=== PATIENT | male | born 1970 | race Caucasian/White ===

== ENCOUNTER 2022-05-19 14:04 | Day surgery (SDC) | payer OTHER, SELFPAY ==
[2022-05-19] VITALS (17 sets, daily range): BP systolic 122–162; BP diastolic 71–104; PULSE 80–112; RESP 12–33; TEMP 36.2–37.2; O2SAT 90–98; BMI 26.4
--- NOTE | 2022-05-19 14:08 | CRLHL7_ITS ---
For Patients: As a result of the Century Cures Act, medical imaging exams and procedure reports are released immediately into your electronic medical record. You may view this report before your referring provider. If you have questions, please contact your health care provider. Indication: Peritonsillar abscess Technique: Volumetric multidetector CT images of the cervical soft tissues were obtained after the administration of low osmolar intravenous contrast. 90 cc Isovue 370 low osmolar intravenous contrast Comparison: None available. Findings: The partially visualized brain parenchyma is normal in attenuation without evidence of abnormal enhancement. The orbits and their contents are within normal limits. There is minimal mucosal thickening within the paranasal sinuses with minimal bubbly secretions. The mastoid air cells are clear. There is mild edema within the uvula and soft palate. Otherwise, the nasopharynx is grossly clear. There is enlargement of the right greater than left palatine tonsil with demonstration of a 2.0 x 1.7 centimeter peritonsillar abscess. There is moderate edema of the right pharyngeal wall and right base of tongue with the effacement of the right piriform sinus. No definite evidence of extension of inflammatory changes into the retropharyngeal space or submandibular spaces. The vocal folds are nonthickened with symmetrical appearance. The thyroid gland is normal in attenuation. There are enlarged, reactive cervical lymph nodes within the right greater than left carotid chains. The jugular veins are patent. The carotid arteries demonstrate no significant atherosclerotic narrowing. The lung apices are clear. The cervical vertebral body heights are grossly maintained with mild straightening of the normal cervical lordosis. There is no significant spondylolisthesis or displaced fracture. Impression: 2.0 x 1.7 centimeter peritonsillar abscess within the right palatine tonsil with moderate right pharyngeal wall edema and effacement of the hypopharynx and right piriform sinus. Minimal pen pharyngeal mucosal hyperemia consistent with pharyngitis changes. Reactive cervical lymph nodes are appreciated. Please note that all CT scans at this facility use dose modulation, iterative reconstruction, and/or weight-based dosing when appropriate to reduce radiation dose to as low as reasonably achievable. Dictated by Andre Louie MD @ 05/19/2022 4:13:24 PM (Electronically Signed)
[2022-05-19 14:39] LABS: Lactate* 1.4 mmol/L (0.5-1.9)
[2022-05-19] MEDS: KETOROLAC 30 MG/ML inj IVP (14:41)
--- NOTE | 2022-05-19 14:41 | ED_ITS ---
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 Sawyer Goode in our ENT. History is that he has now had a sore throat for approximately 5-6 days, he was seen 4 days ago, diagnosed with tonsillitis since given dexamethasone, he improved slightly but in the last couple days is gotten worsening right-sided is throat discomfort, slight fevers, been taking Tylenol and also ibuprofen. History of sore throat in the past, strep negative so far. Otherwise healthy, trouble swallowing at this point with right-sided pain, but no drooling. Presents here with his , Onset (ago): day(s) Location: neck Associated symptoms: denies other symptoms Treatments prior to arrival: NSAID and other Related Data Home Medications Medication Instructions Recorded Confirmed No Known Home Medications 05/16/22 05/19/22 Allergies Allergy/AdvReac Type Severity Reaction Status Date / Time No Known Drug Allergies Allergy Verified 05/19/22 14:16 Review of Systems Status of ROS: Reports: 10 or more systems reviewed and unremarkable except as noted in History and below [facility] Social History Smoking Status: Never smoker Exam Narrative: Exam Narrative: On examination room 2 he is in no apparent distress he does have a little bit of what I would describe as hot potato voice. Speaking to me otherwise normally, pupils equal round reactive to light, no scleral icterus redness TMs are normal, small dried lesion on that right upper lip, consistent with resolving herpes labialis, mouth opening is 3 fingers, he has right-sided peritonsillar swelling with redness consistent with the I suspect tonsillar abscess. This encroaches on his uvula, the left side appears otherwise fairly normal. Lymphadenopathy is increased on the right side versus left, tender to palpation, no meningismus he is able to move his neck normally, chest is clear bilaterally with no wheezing crackles noted heart sounds are normal, no clicks murmurs or gallops, abdomen is otherwise soft skin is shows no rashes, good cap refill moves all extremities independently well, with normal neurologic power in upper lower extremities. Const: Vital Signs, click to edit/add: Vital Signs - 24 hr 05/19/22 14:13 Temperature 97.4 F L Pulse Rate [Pulse Oximeter] 88 Respiratory Rate 18 Blood Pressure [Ri ght Upper Arm] 154/104 H Pulse Oximetry 98 Oxygen Delivery Me thod Room Air Documenting provider has reviewed patient's vital signs: yes Course Course Hospital Course: Discussed the case with our ENT surgeon, he will take him to the operating room to drain the right-sided peritonsillar abscess which measures by my reading 2 cm. Radiological read pending, discussed with patient Reevaluation(s) Reevaluation #1: Patient's laboratory and CT reviewed, reviewed with ENT, he will be going to the operating room, patient fit for surgery ASA 1. Vital Signs Vital signs: Initial Vital Signs Temperature 97.4 F L 05/19/22 14:13 Temperature Source Temporal Artery Scan 05/19/22 14:13 Pulse Rate 88 05/19/22 14:13 Respiratory Rate 18 05/19/22 14:13 Blood Pressure 154/104 H 05/19/22 14:13 Blood Pressure Mean 120 05/19/22 14:13 Blood Pressure Position Sitting 05/19/22 14:13 Pulse Oximetry 98 05/19/22 14:13 Oxygen Delivery Method Room Air 05/19/22 14:13 Vital Signs Temperature 97.4 F L 05/19/22 14:13 Pulse Rate 88 05/19/22 14:13 Respiratory Rate 18 05/19/22 14:13 Blood Pressure 154/104 H 05/19/22 14:13 Pulse Oximetry 98 05/19/22 14:13 Oxygen Delivery Method Room Air 05/19/22 14:13 Temperature 97.4 F L 05/19/22 14:13 Pulse Rate 88 05/19/22 14:13 Respiratory Rate 18 05/19/22 14:13 Blood Pressure 154/104 H 05/19/22 14:13 Pulse Oximetry 98 05/19/22 14:13 Oxygen Delivery Method Room Air 05/19/22 14:13 Medical Decision Making MDM Narrative Medical decision making narrative: During this assessment I considered multiple diagnosis including tonsillitis, strep throat, peritonsillar abscess, retropharyngeal abscess, neck abscess, thyroid issues, meningismus, among other issues. We will go ahead and get a neck CT was soft tissue contrast along with IV labs, IV pain medication will be given, he requested that we not use narcotics and I think this is reasonable. We will try some Toradol. I will contact the on-call ENT physician once this is all done. Medical Records Medical records reviewed: Yes I reviewed the patient's medical records Lab Data Lab results reviewed: Yes I reviewed the patient's lab results Labs: Lab Results 05/19/22 Range/Units 14:30 WBC 13.22 H (4.50-11.00) K/uL RBC 4.97 (4.30-5.90) m/uL Hgb 15.4 (13.5-17.5) gm/dL Hct 45.4 (37.0-53.0) % MCV 91 (80-100) fL MCH 31 (26-34) pg MCHC 34 (32-36) gm/dL RDW Coeff of Romulo 11.8 (11.5-15.5) % Plt Count 249 (140-440) K/uL Neut % (Auto) 78.5 H (42.0-72.0) % Lymph % (Auto) 12.0 L (20-44) % Swift % (Auto) 8.9 (0.0-11.0) % Eos % (Auto) 0.3 (0.0-7.0) % Baso % (Auto) 0.2 (0.0-3.0) % Neut # (Auto) 10.40 H (1.7-7.0) K/uL Lymph # (Auto) 1.60 (0.90-2.90) K/uL Swift # (Auto) 1.20 H (0.00-0.90) K/UL Eos # (Auto) 0.00 (0.00-0.50) K/uL Baso # (Auto) 0.00 (0.00-0.30) K/uL Sodium 137 (135-149) mmol/L Potassium 4.2 (3.6-5.1) mmol/L Chloride 101 (96-114) mmol/L Carbon Dioxide 29 (20-32) mmol/L BUN 16 (7-30) mg/dL Creatinine 0.9 (0.5-1.5) mg/dL Estimated Creat Clear 96.88 Estimated GFR 101 ml/min Glucose 76 (60-115) mg/dL Lactate 1.4 (0.5-1.9) mmol/L Calcium 9.3 (8.4-10.6) mg/dL C-Reactive Protein 7.3 H (0.5-1.0) mg/dL SARS-CoV-2 (PCR) Negative SARS-CoV-2 (Negative) Influenza Type A (PCR) Negative PCR FLU A (Negative) Influenza Type B (PCR) Negative PCR FLU B (Negative) RSV (PCR) Negative PCR RSV (Negative) Imaging Data Soft tissue CT neck: Attestation: I have reviewed the pertinent imaging results. My impression: 2 cm abscess noted, Discharge Plan Discharge Clinical Impression: Abscess, peritonsillar Condition: Stable
[2022-05-19 14:42] LABS: Basophils Percent Auto 0.2 % (0.0-3.0); Eosinophils Percent Auto 0.3 % (0.0-7.0); Hematocrit 45.4 % (37.0-53.0); Hemoglobin* 15.4 gm/dL (13.5-17.5); Immature Granulocytes Pct Auto 0.1 %; Mean Corpuscular HGB Conc 34 gm/dL (32-36); Mean Corpuscular Hemoglobin 31 pg (26-34); Mean Corpuscular Volume 91 fL (80-100); Monocytes Percent Auto 8.9 % (0.0-11.0); Neutrophils Percent Auto 78.5 % (42.0-72.0); Platelet Count* 249 K/uL (140-440); RDW Coefficient of Variation % 11.8 % (11.5-15.5); Red Blood Count 4.97 m/uL (4.30-5.90); White Blood Count* 13.22 K/uL (4.50-11.00)
[2022-05-19] MEDS: 0.9 % SODIUM CHLORIDE 1000 ml 1,000 ML IV (14:42)
[2022-05-19 15:06] LABS: Chloride* 101 mmol/L (96-114); Potassium* 4.2 mmol/L (3.6-5.1); Sodium* 137 mmol/L (135-149)
[2022-05-19 15:08] LABS: Creatinine* 0.9 mg/dL (0.5-1.5); Est. Creatinine Clearance* 96.88; Estimated Glomerular Filt Rate 101 ml/min
[2022-05-19 15:09] LABS: Blood Urea Nitrogen* 16 mg/dL (7-30); Carbon Dioxide* 29 mmol/L (20-32); Glucose* 76 mg/dL (60-115)
[2022-05-19 15:10] LABS: Calcium* 9.3 mg/dL (8.4-10.6)
[2022-05-19 15:12] LABS: C Reactive Protein* 7.3 mg/dL (0.5-1.0)
[2022-05-19 15:20] LABS: PCR FLU A Negative PCR FLU A (Negative); PCR FLU B Negative PCR FLU B (Negative); PCR RSV Negative PCR RSV (Negative)
[2022-05-19 15:35] LABS: Slide Review Reflex No
[2022-05-19 15:44] LABS: SARS PCR* Negative SARS-CoV-2 (Negative)
[2022-05-19 16:02] LABS: Mono Screen* Negative (Negative)
[2022-05-19] MEDS: AMPICILLIN/SULBACTAM 3 GM in 0.9 % SODIUM CHLORIDE Mini-bag 100 ML IVPB ×2 (16:30→22:31)
--- NOTE | 2022-05-19 16:41 | W.PM.ENTPROC ---
Procedure Note Date of procedure: 05/19/22 Procedure: Preoperative diagnosis right Geoff Tonsillar, uvular and hypopharyngeal abscess Postoperative diagnosis same Procedure drainage soft palate/uvula abscess, incision drainage right peritonsillar abscess, incision drainage right hypopharyngeal abscess Procedure reads the patient was brought to the operating room prepped and draped in usual fashion. Anesthesia was induced without difficulty in the patient was intubated. McIvor mouth gag was inserted the tongue retracted forward. The uvula was clearly cellulitic and approximately 8 times normal size. The lower half was amputated with needlepoint cautery allowing it decompress. An incision was made with a needlepoint cautery above the right superior tonsil. Sharp and blunt dissection was used to enter the peritonsillar space where a large abscess was encountered. This was opened widely at the top and then and they blunt instrument was used to establish inferior drainage. The cavity was irrigated bleeding was controlled with the Coblation Wand. Culture of the purulent drainage was performed at the initial drainage. No further bleeding was noted. I noted edema along the just medial to the posterior pillar inferiorly in the hypopharynx. Mucosa this swollen mucosa was incised with needlepoint cautery and blunt dissection was used to open widely I 1 cm area. There is no purulent fluid however so I just left this open to drain. The patient was active in the operating room taken recovery in satisfactory condition. Blood loss during procedure was less than 25 mL. Cultures were sent. There were no complications. Surgeon: Antonio Campbell MD
--- NOTE | 2022-05-19 16:44 | P.ENTCN_ITS ---
HPI- ENT Consult Date of Consult Date Seen: 05/19/22 Consult date: 05/19/22 Primary Care Provider: Erwin Ledezma MD Consult Narrative Narrative: Carlo Oneill is a 52 year old male [facility] Social History Smoking Status: Never smoker Meds Home Medications and Allergies Home Medications Medication Instructions Recorded Confirmed Type No Known Home Medications 05/16/22 05/19/22 History Allergies Allergy/AdvReac Type Severity Reaction Status Date / Time No Known Drug Allergies Allergy Verified 05/19/22 14:16 Exam Const: Vital Signs, click to edit/add: Vital Signs - 24 hr 05/19/22 14:13 Temperature 97.4 F L Pulse Rate [Pulse Oximeter] 88 Respiratory Rate 18 Blood Pressure [Ri ght Upper Arm] 154/104 H Pulse Oximetry 98 Oxygen Delivery Me thod Room Air ENT-CN: Result Labs Labs: Short CBC 05/19/22 Range/Units 14:30 WBC 13.22 H (4.50-11.00) K/uL Hgb 15.4 (13.5-17.5) gm/dL Hct 45.4 (37.0-53.0) % Plt Count 249 (140-440) K/uL BMP 05/19/22 14:30 Sodium 137 Potassium 4.2 Chloride 101 Carbon Dioxide 29 BUN 16 Creatinine 0.9 Glucose 76 Calcium 9.3 Assessment and Plan Assessment and plan (1) Abscess, peritonsillar: Status: Acute Assessment and Plan: See clinic notes for further history. CT reviewed shows large abscess. There is edema extending down to near but not occluding anywhere near the glottis. After options and risks reviewed with him he was the plan was to go to the operating room. Risks of recurrence difficult intubation possibility of leaving intubated recurrence of abscess bleeding etc. as well as general anesthesia were all reviewed. He understands and wishes to proceed we will go ahead as soon as possible. I did discuss with him I would likely amputated at least half of his uvula as it was markedly edematous and occluding his oropharyngeal airway. He is comfortable with that.
--- NOTE | 2022-05-19 18:29 | P.ANES_ITS ---
Anesthesia Charges Start Date/Time Anesthesia Start Date: 05/19/22 Anesthesia Start Time: 16:22 Stop Date/Time Anesthesia Stop Date: 05/19/22 Anesthesia Stop Time: 16:55 Summary Emergency: [employer]
--- NOTE | 2022-05-19 18:34 | P.IMHP_ITS ---
Hospitalist- H&P: HPI History of Present Illness Date Seen: 05/19/22 Chief complaint: Needs CT for abscess Narrative: Carlo Oneill is a 52 year old healthy male with several days of progressive sore throat admitted through the emergency department with a right peritonsillar abscess. Taken to the operating room by Dr. Campbell for I and D of this abscess. Patient reports feeling generally better postoperatively. He did note he was having trouble swallowing over the weekend. He was seen in urgent care where he was found to have a negative strep test and given dexamethasone which helped temporarily. Because he was getting worse he was seen in clinic today referred Dr. Campbell and to the emergency department. CT scan showed peritonsillar abscess. No previous problems with tonsillitis or airway problems. He does report that he had some rhinorrhea and other cold symptoms last week. He has not had a fever. No breathing troubles. No other recent illness. He is had previous eye surgery. No other surgeries. No hospitalizations. No chronic medical problems. No medications. No drug allergies. His notes that he does snore. Review of Systems Narrative: No recent illness or injury except as noted above PFSH PFS Surgical History (Updated 05/19/22 @ 19:03 by Ishaan Mendosa MD) Hx of LASIK ?Z98.890 - Other specified postprocedural states (ICD-10) Family History (Updated 05/19/22 @ 19:03 by Ishaan Mendosa MD) Other High cholesterol Social History (Updated 05/19/22 @ 19:04 by Ishaan Mendosa MD) Narrative: He is and lives with his and 2 sons in [facility]. He works as a CPA. He does not smoke. He drinks 1 alcoholic beverage per day. Smoking Status: Never smoker Do you use any of these nicotine containing products: None Second hand tobacco smoke exposure: No How often do you have a drink containing alcohol: never AUDIT-C Alcohol total score: 0 Meds Home Medications and Allergies Home Medications Medication Instructions Recorded Confirmed Type No Known Home Medications 05/16/22 05/19/22 History Home Medication Comments: None Allergies Allergy/AdvReac Type Severity Reaction Status Date / Time No Known Drug Allergies Allergy Verified 05/19/22 14:16 Exam Narrative: Exam Narrative: He is alert and appears in no distress. Oropharynx with small airway. Prominent tongue. Erythema and exudate of the right tonsil. No stridor. Neck is supple without tenderness. No significant adenopathy. Respirations are clear to auscultation. Breathing is unlabored. Cardiovascular: S1, S2, regular rate and rhythm. No murmur gallop or rub. Abdomen: Bowel sounds active. Abdomen is soft without tenderness or mass. Extremities with intact pulses and sensation. Good peripheral perfusion. No edema. Const: Vital Signs, click to edit/add: Vital Signs - 24 hr 05/19/22 14:13 05/19/22 16:50 05/19/22 16:55 Temperature 97.4 F L 98.7 F Pulse Rate 93 112 H Pulse Rate [Pulse Oximeter] 88 Respiratory Rate 18 23 29 H Blood Pressure 148/98 H 162/92 H Blood Pressure [Ri ght Upper Arm] 154/104 H Pulse Oximetry 98 98 98 Oxygen Delivery Me thod Room Air Non Rebreather Mas k Non Rebreather Mas k Oxygen Flow Rate 7 7 Fraction of Inspir ed Oxygen 40 40 05/19/22 17:00 05/19/22 17:05 05/19/22 17:10 Temperature Pulse Rate 89 93 86 Pulse Rate [Pulse Oximeter] Respiratory Rate 20 18 33 H Blood Pressure 137/92 H 145/84 H 138/89 Blood Pressure [Ri ght Upper Arm] Pulse Oximetry 98 97 96 Oxygen Delivery Me thod Non Rebreather Mas k Room Air Room Air Oxygen Flow Rate 7 0 0 Fraction of Inspir ed Oxygen 40 0 0 05/19/22 17:15 05/19/22 17:20 05/19/22 15:30 Temperature 99 F Pulse Rate 86 83 Pulse Rate [Pulse Oximeter] 91 Respiratory Rate 19 19 16 Blood Pressure 142/91 H 138/91 H Blood Pressure [Ri ght Upper Arm] 139/85 Pulse Oximetry 98 96 96 Oxygen Delivery Me thod Room Air Room Air Room Air Oxygen Flow Rate 0 0 Fraction of Inspir ed Oxygen 0 0 Documenting provider has reviewed patient's vital signs: yes Hospitalist - H&P: Result Labs Labs: Short CBC 05/19/22 Range/Units 14:30 WBC 13.22 H (4.50-11.00) K/uL Hgb 15.4 (13.5-17.5) gm/dL Hct 45.4 (37.0-53.0) % Plt Count 249 (140-440) K/uL [facility] 05/19/22 14:30 Sodium 137 Potassium 4.2 Chloride 101 Carbon Dioxide 29 BUN 16 Creatinine 0.9 Glucose [address]- Other: Radiologist's impression: Indication: Peritonsillar abscess Technique: Volumetric multidetector CT images of the cervical soft tissues were obtained after the administration of low osmolar intravenous contrast. 90 cc Isovue 370 low osmolar intravenous contrast Comparison: None available. Findings: The partially visualized brain parenchyma is normal in attenuation without evidence of abnormal enhancement. The orbits and their contents are within normal limits. There is minimal mucosal thickening within the paranasal sinuses with minimal bubbly secretions. The mastoid air cells are clear. There is mild edema within the uvula and soft palate. Otherwise, the nasopharynx is grossly clear. There is enlargement of the right greater than left palatine tonsil with demonstration of a 2.0 x 1.7 centimeter peritonsillar abscess. There is moderate edema of the right pharyngeal wall and right base of tongue with the effacement of the right piriform sinus. No definite evidence of extension of inflammatory changes into the retropharyngeal space or submandibular spaces. The vocal folds are nonthickened with symmetrical appearance. The thyroid gland is normal in attenuation. There are enlarged, reactive cervical lymph nodes within the right greater than left carotid chains. The jugular veins are patent. The carotid arteries demonstrate no significant atherosclerotic narrowing. The lung apices are clear. The cervical vertebral body heights are grossly maintained with mild straightening of the normal cervical lordosis. There is no significant spondylolisthesis or displaced fracture. Impression: 2.0 x 1.7 centimeter peritonsillar abscess within the right palatine tonsil with moderate right pharyngeal wall edema and effacement of the hypopharynx and right piriform sinus. Minimal pen pharyngeal mucosal hyperemia consistent with pharyngitis changes. Reactive cervical lymph nodes are appreciated. Please note that all CT scans at this facility use dose modulation, iterative reconstruction, and/or weight-based dosing when appropriate to reduce radiation dose to as low as reasonably achievable. Assessment and Plan Assessment and plan (1) Abscess, peritonsillar: Problem comment: Right peritonsillar abscess status post I&D. Status: Acute Plan He is admitted to the hospital for ongoing IV antibiotics and monitoring of airway as the abscess was tracking into his airway. Probable discharge to home tomorrow if making progress with symptoms. Total time spent today is 40 minutes, 25 minutes in coordination of care discussing with patient and other providers ongoing evaluation management of peritonsillar abscess.
--- NOTE | 2022-05-19 19:00 | PC.NURSE ---
Pt arrived to floor at 1730. Pt alert and oriented. Pt had no complaints of pain. Pt's voice was hoarse. Pt up to bathroom with SBA tolerated activity well. Pt voided and has had good fluid intake. Pt saline locked at end of shift. Pt's at bedside.
[2022-05-19] MEDS: SODIUM CHLORIDE 0.9 % (FLUSH) 10 ML SYRINGE 5 ML IVF (21:17)
[2022-05-19] MEDS: LACTATED RINGERS 1000 ML 1,000 ML 35 ML IV (21:18)
[2022-05-20 03:40] VITALS: BP 118/78; PULSE 89; RESP 12; TEMP 36.8; O2SAT 90
[2022-05-20] MEDS: AMPICILLIN/SULBACTAM 3 GM in 0.9 % SODIUM CHLORIDE Mini-bag 100 ML IVPB ×2 (05:45→10:31)
[2022-05-20 05:55] VITALS: PULSE 80; RESP 12
--- NOTE | 2022-05-20 06:34 | PC.NURSE ---
Addendum entered by Amy Mathews RN 05/20/22 06:40: Full liquid diet not reg diet that patient is tolerating well. Original Note: Patient is alert and oriented x 3, vss, on RA, regular diet (tolerating well), up-ad dante. Patient is saline locked he is drinking adequate fluids and voiding appropriately. Patient denies pain.
[2022-05-20 07:40] VITALS: BP 129/94; PULSE 74; RESP 16; TEMP 36.1; O2SAT 92
--- NOTE | 2022-05-20 09:03 | P.DS_ITS ---
DS: Providers Provider Date Seen: 05/20/22 Primary care physician: Erwin Ledezma MD Attending Physician on discharge: Antonio Campbell MD Date of Discharge: 05/20/22 DS: Diagnosis Discharge Diagnosis (1) Abscess, peritonsillar: Status: Acute Problem details: Right peritonsillar abscess status post I&D. (2) Obstructive sleep apnea: Status: Suspected Problem details: Clinically suspicious for obstructive sleep apnea. Recommend outpatient sleep study. DS: Summary Hospital Course Hospital Course: 52-year-old male with several days of progressive sore throat admitted to the hospital with a right peritonsillar abscess. Was taken to the OR by Dr. Campbell for I and D of this abscess. Subsequently stayed overnight for observation of his airway and antibiotics due to concerns about the extent of his infection. He did well overnight. Still having some pain with swallowing. Status at Discharge Functional status at discharge: independent ambulation Overall status at discharge: patient is progressing back to baseline Time Spent with Patient Time attestation: Total time spent providing and/or coordinating discharge services: Time spent: Less than 30 minutes Exam Narrative: Exam Narrative: He is alert in no distress. Voice is normal. Oropharynx with still erythema and exudate around the right tonsil. Neck is supple without significant tenderness and no stridor Const: Vital Signs, click to edit/add: Vital Signs - 24 hr 05/19/22 14:13 05/19/22 16:50 05/19/22 16:55 Temperature 97.4 F L 98.7 F Pulse Rate 93 112 H Pulse Rate [Pulse Oximeter] 88 Respiratory Rate 18 23 29 H Blood Pressure 148/98 H 162/92 H Blood Pressure [Ri ght Arm] Blood Pressure [Ri ght Upper Arm] 154/104 H Pulse Oximetry 98 98 98 Oxygen Delivery Me thod Room Air Non Rebreather Mas k Non Rebreather Mas k Oxygen Flow Rate 7 7 Fraction of Inspir ed Oxygen 40 40 05/19/22 17:00 05/19/22 17:05 05/19/22 17:10 Temperature Pulse Rate 89 93 86 Pulse Rate [Pulse Oximeter] Respiratory Rate 20 18 33 H Blood Pressure 137/92 H 145/84 H 138/89 Blood Pressure [Ri ght Arm] Blood Pressure [Ri ght Upper Arm] Pulse Oximetry 98 97 96 Oxygen Delivery Me thod Non Rebreather Mas k Room Air Room Air Oxygen Flow Rate 7 0 0 Fraction of Inspir ed Oxygen 40 0 0 05/19/22 17:15 05/19/22 17:20 05/19/22 15:30 Temperature 99 F Pulse Rate 86 83 Pulse Rate [Pulse Oximeter] 91 Respiratory Rate 19 19 16 Blood Pressure 142/91 H 138/91 H Blood Pressure [Ri ght Arm] Blood Pressure [Ri ght Upper Arm] 139/85 Pulse Oximetry 98 96 96 Oxygen Delivery Me thod Room Air Room Air Room Air Oxygen Flow Rate 0 0 Fraction of Inspir ed Oxygen 0 0 05/19/22 17:30 05/19/22 17:30 05/19/22 17:45 Temperature 97.1 F L 97.1 F L 97.6 F Pulse Rate 80 Pulse Rate [Pulse Oximeter] 85 Respiratory Rate 16 16 16 Blood Pressure Blood Pressure [Ri ght Arm] 129/71 129/71 131/82 Blood Pressure [Ri ght Upper Arm] Pulse Oximetry 96 93 Oxygen Delivery Me thod Room Air Room Air Room Air Oxygen Flow Rate 0 0 Fraction of Inspir ed Oxygen 05/19/22 18:00 05/19/22 18:15 05/19/22 18:45 Temperature 97.6 F 97.1 F L 97.3 F L Pulse Rate Pulse Rate [Pulse Oximeter] 85 93 82 Respiratory Rate 16 16 16 Blood Pressure Blood Pressure [Ri ght Arm] 132/81 143/87 H 122/82 Blood Pressure [Ri ght Upper Arm] Pulse Oximetry 93 96 94 Oxygen Delivery Me thod Room Air Room Air Room Air Oxygen Flow Rate 0 0 0 Fraction of Inspir ed Oxygen 05/19/22 23:00 05/19/22 20:15 05/19/22 23:20 Temperature 98.6 F 98.7 F Pulse Rate Pulse Rate [Pulse Oximeter] 80 89 80 Respiratory Rate 12 12 12 Blood Pressure Blood Pressure [Ri ght Arm] 130/85 122/76 Blood Pressure [Ri ght Upper Arm] Pulse Oximetry 94 90 Oxygen Delivery Me thod Room Air Room Air Oxygen Flow Rate Fraction of Inspir ed Oxygen 05/20/22 03:40 05/20/22 05:55 05/20/22 07:40 Temperature 98.2 F 97.0 F L Pulse Rate Pulse Rate [Pulse Oximeter] 89 80 74 Respiratory Rate 12 12 16 Blood Pressure Blood Pressure [Ri ght Arm] 118/78 129/94 H Blood Pressure [Ri ght Upper Arm] Pulse Oximetry 90 92 Oxygen Delivery Me thod Room Air Room Air Oxygen Flow Rate Fraction of Inspir ed Oxygen Documenting provider has reviewed patient's vital signs: yes DS: Data Data Completed and Pending Labs on day of discharge: Labs from last 24 hours 05/19/22 14:30 WBC 13.22 H RBC 4.97 Hgb 15.4 Hct 45.4 MCV 91 MCH 31 MCHC 34 RDW Coeff of Romulo 11.8 Plt Count 249 Neut % (Auto) 78.5 H Lymph % (Auto) 12.0 L [place] % (Auto) 8.9 Eos % (Auto) 0.3 Baso % (Auto) 0.2 Neut # (Auto) 10.40 H Lymph # (Auto) 1.60 [place] # (Auto) 1.20 H Eos # (Auto) 0.00 Baso # (Auto) 0.00 Sodium 137 Potassium 4.2 Chloride 101 Carbon Dioxide 29 BUN 16 Creatinine 0.9 Estimated Creat Clear 96.88 Estimated GFR 101 Glucose 76 Lactate 1.4 Calcium 9.3 C-Reactive Protein 7.3 H SARS-CoV-2 (PCR) Negative SARS-CoV-2 Monoscreen Negative Influenza Type A (PCR) Negative PCR FLU A Influenza Type B (PCR) Negative PCR FLU B RSV (PCR) Negative PCR RSV Discharge Plan Discharge Disposition: Home, Self-Care Discharging Surgeon: Ishaan Mendosa Follow-Up Appointment: Follow-up with Dr. Campbell if getting worse. Consider outpatient sleep Prescriptions: New amoxicillin-pot clavulanate 875-125 mg tablet 1 tab PO BID Qty: 14 0RF Activity Level: No Restrictions Discharge Diet: Regular Forms: Work/School Release Follow-up: Antonio Campbell MD [Staff Physician] - (as needed) Erwin Ledezma MD [Primary Care Provider] - Discharge Orders: Discharge Order (Routine); Ordered 05/20/22 Ordered By: Antonio Campbell Consulting provider completed their portion of the discharge: Yes
[2022-05-20 10:31] VITALS: BP 138/91; PULSE 80; RESP 16; TEMP 36.1
[2022-05-20] MEDS: SODIUM CHLORIDE 0.9 % (FLUSH) 10 ML SYRINGE 5 ML IVF (10:31)
--- NOTE | 2022-05-20 12:03 | PC.NURSE ---
Pt cooperative and calm during shift. Pt advanced to regular diet and tolerating well. Pt up independently. Pt has had no complaints of pain. Pt?s voice is hoarse. VSS.?Pt to discharge home with .?
--- NOTE | 2022-05-28 10:28 | SUR.PHASEI ---
Verified charting with Ronal and Nory Stevens. Moved charting from Phase II to Phase I as appropriate.
== END 2022-05-20 11:15 | disposition home or self-care (01) ==
LOC: ED 15:44 → SS 15:58 → MEDSURG 19:04
PROVIDERS: Emergency Provider Family Medicine; PCP Internal Medicine; Visit Provider Otolaryngology
PROC: 0C9PXZZ Drainage of Tonsils, External Approach (ICD-10-PCS; CPT 42700; principal; 2022-05-19 16:15)
DX: J36 Peritonsillar abscess (principal); J39.1 Other abscess of pharynx; K12.2 Cellulitis and abscess of mouth; G47.33 Obstructive sleep apnea (adult) (pediatric)
CPT/HCPCS: 42700; 42000; 00170; 36415; 70491; 80048; 83605; 85025; 86140; 86308; 87040; 87070; 87075; 87077; 87186; 87205; 87631; 88302; 88312; 99140; 99284; J0295; J0330; J1100; J1885; J2250; J2405; J2704; J3010; J7030; J7120; Q9967

== ENCOUNTER 2024-06-19 07:34 | Outpatient (CLI) | payer OTHER, SELFPAY | END 2024-06-19 07:35 | disposition home or self-care (01) | LOC: NFLDREF 06-22 19:03 | PROVIDERS: PCP Internal Medicine; Referring Provider Internal Medicine; Visit Provider Internal Medicine | DX: R79.89 Other specified abnormal findings of blood chemistry (principal); Z13.9 Encounter for screening, unspecified; Z12.5 Encounter for screening for malignant neoplasm of prostate | CPT/HCPCS: 80053; 80061; 82306; G0103 ==